=== PATIENT | female | born 1980 | race Caucasian/White ===

== ENCOUNTER → 2017-01-14 | Outpatient (CLI) | payer BC ==
[~2017-01-14] MED LIST: IBUP-1222 PO; PREN1TAB56 PO
== END | disposition home or self-care (01) ==
LOC: CFH 14:05
PROVIDERS: ATTEND Obstetrics & Gynecology
DX: N63 Unspecified lump in breast (principal)
CPT/HCPCS: 76642

== ENCOUNTER 2019-03-22 09:04 | Outpatient (CLI) | payer BC ==
[~2019-03-22] VITALS: Ht 160 cm; Wt 85.0 kg
[2019-03-22 09:24] VITALS: BP 111/59
== END 2019-03-22 11:40 | disposition home or self-care (01) ==
LOC: LDOP 09:04
PROVIDERS: ATTEND Student in an Organized Health Care Education/Training Program
DX: O09.523 Supervision of elderly multigravida, third trimester (principal); O26.893 Other specified pregnancy related conditions, third trimester; R10.9 Unspecified abdominal pain; Z3A.38 38 weeks gestation of pregnancy
CPT/HCPCS: 59025; 99211; G0463

== ENCOUNTER 2019-03-23 06:26 | Outpatient (CLI) | payer BC ==
[~2019-03-23] VITALS: Ht 160 cm; Wt 85.0 kg
== END 2019-03-23 08:58 | disposition home or self-care (01) ==
LOC: LDOP 06:26
PROVIDERS: ATTEND Student in an Organized Health Care Education/Training Program
DX: O26.899 Other specified pregnancy related conditions, unspecified trimester (principal); Z3A.00 Weeks of gestation of pregnancy not specified
CPT/HCPCS: 59025; 81001; 87086; 99211; Q0163; G0463

== ENCOUNTER 2019-03-28 15:08 | Inpatient (IN) | payer BC ==
[~2019-03-28] VITALS: Ht 160 cm; Wt 73.6 kg
[2019-03-29 16:35] VITALS: BP 117/71
== END 2019-03-29 18:45 | disposition home or self-care (01) | DRG 807 ==
LOC: LDIP 15:08 → 2NW 21:42
PROVIDERS: ADMIT Student in an Organized Health Care Education/Training Program; ATTEND Student in an Organized Health Care Education/Training Program
PROC: 10907ZC Drainage of Amniotic Fluid, Therapeutic from Products of Conception, Via Natural or Artificial Opening (ICD-10-PCS; principal; 2019-03-28)
PROC: 10E0XZZ Delivery of Products of Conception, External Approach (ICD-10-PCS; 2019-03-28)
PROC: 0KQM0ZZ Repair Perineum Muscle, Open Approach (ICD-10-PCS; 2019-03-28)
PROC: 3E0234Z Introduction of Serum, Toxoid and Vaccine into Muscle, Percutaneous Approach (ICD-10-PCS; 2019-03-28)
PROC: 3E0R3BZ Introduction of Anesthetic Agent into Spinal Canal, Percutaneous Approach (ICD-10-PCS; 2019-03-28)
PROC: 00HU33Z Insertion of Infusion Device into Spinal Canal, Percutaneous Approach (ICD-10-PCS; 2019-03-28)
DX: O76 Abnormality in fetal heart rate and rhythm complicating labor and delivery (principal); Z37.0 Single live birth; Z3A.40 40 weeks gestation of pregnancy; O70.1 Second degree perineal laceration during delivery; Z82.49 Family history of ischemic heart disease and other diseases of the circulatory system
CPT/HCPCS: 36415; J2790; 85025; 85461; 86850; 86900; G0378; J3010; J2590; J7120

== ENCOUNTER 2019-08-18 09:50 | Day surgery (SDC) | payer BC ==
[~2019-08-18] VITALS: Ht 160 cm; Wt 78.0 kg
[~2019-08-18 09:50] MED LIST changes: +[UNRECOGNIZED DRUG - OTHER] PO; +[UNRECOGNIZED DRUG - REMARK]; +collagen PO
[2019-08-18] MEDS ORDERED: FENTANYL PF 250 MCG/5ML ONE (09:57)
[2019-08-18] MEDS ORDERED: MIDAZOLAM 1 MG/ML, 2ML ONE (09:57)
[2019-08-18] MEDS ORDERED: LACTATED RINGERS 1,000 ML IV SCH (10:10)
[2019-08-18 10:25] VITALS: BP 120/82
[2019-08-18] MEDS ORDERED: LIDOCAINE-MPF 2% ,5ML ONE (12:10)
[2019-08-18] MEDS ORDERED: KETOROLAC 30 MG/1 ML ONE (12:10)
[2019-08-18] MEDS ORDERED: SUGAMMADEX 200 MG/2 ML IVPush ONE (12:10)
[2019-08-18] MEDS ORDERED: BUPIVACAINE/PF-EPI 0.25% 1:200K INFIL ONE (12:34)
[2019-08-18] MEDS ORDERED: NEOSTIGMINE 1 MG/ML, 10ML ONE (12:50)
[2019-08-18] MEDS ORDERED: PROPOFOL 10 MG/ML, 20ML ONE (12:50)
[2019-08-18] MEDS ORDERED: DEXAMETHASONE 4 MG/ML, 1ML ONE (12:50)
[2019-08-18] MEDS ORDERED: ROCURONIUM 10MG/ML,5ML ONE (12:50)
[2019-08-18] MEDS ORDERED: GLYCOPYRROLATE 0.2MG/1ML, 5ML ONE (12:50)
[2019-08-18] MEDS ORDERED: ONDANSETRON 2MG/ML, 2ML ONE (12:50)
[2019-08-18] MEDS ORDERED: ALBUTEROL/IPRATROPIUM 2.5MG/0.5MG, 3 ML NPPB PRN (13:30)
[2019-08-18] MEDS ORDERED: MIDAZOLAM 1 MG/ML, 2ML IV PRN (13:30)
[2019-08-18] MEDS ORDERED: PROMETHAZINE 25 MG/ML, 1ML IV PRN (13:30)
[2019-08-18] MEDS ORDERED: HYDROmorphone 2 MG/ML, 1ML IVPush PRN (13:30)
[2019-08-18] MEDS ORDERED: FENTANYL PF 100 MCG/2ML IV PRN (13:30)
[2019-08-18] MEDS ORDERED: MEPERIDINE/PF 25MG/ML,1ML IVPush PRN (13:30)
[2019-08-18] MEDS ORDERED: OXYcodone 5 MG/5 ML ORAL.SOL UDC PO PRN (13:30)
[2019-08-18] MEDS ORDERED: OXYcodone 5 MG/5 ML ORAL.SOL UDC ONE (13:31)
[2019-08-18] MEDS ORDERED: FENTANYL PF 100 MCG/2ML ONE (13:31)
== END 2019-08-18 15:55 | disposition home or self-care (01) ==
LOC: OUT 09:50
PROVIDERS: ATTEND Student in an Organized Health Care Education/Training Program
DX: Z30.2 Encounter for sterilization (principal); N83.8 Other noninflammatory disorders of ovary, fallopian tube and broad ligament; Z79.899 Other long term (current) drug therapy; Z83.42 Family history of familial hypercholesterolemia; Z82.49 Family history of ischemic heart disease and other diseases of the circulatory system
CPT/HCPCS: 36415; 58670; 81025; 86850; 86900; 88302; J1100; J1885; J2250; J2405; J2704; J2710; J3010; J7120